=== PATIENT | female | born 1965 | race Caucasian/White ===

== ENCOUNTER 2017-08-03 10:56 | Emergency (ER) | payer SELFPAY ==
[2017-08-03 11:21] VITALS: BP 135/75
--- NOTE | 2017-08-03 11:24 | UC ---
Respiratory Complaint HPI - HPI Summary HPI Summary: 52 year old female with history of smoking presents with cough. c/o productive cough with yellow secretions, sore throat, bilateral ear pain that has been intermittent since Jun. SINUS PRESSURE as well for over 2 weeks. smokes but quit yesterday. no fever. no sob . [ End ] - History of Current Complaint Chief Complaint: UCRespiratory Stated Complaint: THROAT/EAR COMPLAINT Time Seen by Provider: 08/03/17 11:15 Hx Obtained From: Patient Onset/Duration: Gradual Onset Timing: Constant Severity Initially: Moderate Severity Currently: Moderate Pain Intensity: 6 Character: Cough: Productive Associated Signs And Symptoms: Positive: Nasal Congestion, Sinus Discomfort - Allergies/Home Medications Allergies/Adverse Reactions: Allergies Allergy/AdvReac Type Severity Reaction Status Date / Time codeine Allergy Difficulty Verified 08/03/17 11:15 Breathing Sulfa (Sulfonamide Allergy Difficulty Verified 08/03/17 11:15 Antibiotics) Breathing Home Medications: Home Medications N-Con Tonic 3 tab PO DAILY 08/03/17 [History] PMH/Surg Hx/FS Hx/Imm Hx Previously Healthy: Yes - Surgical History Surgical History: Yes Surgery Procedure, Year, and Place: hysterectomy/cholectectomy/tonsils - Family History Known Family History: Positive: None - Social History Occupation: Employed Full-time - chairman of the board Alcohol Use: Occasionally Substance Use Type: None Smoking Status (MU): Light Every Day Tobacco Smoker Type: Cigarettes Amount Used/How Often: 1/4 pack daily- quit yesterday Have You Smoked in the Last Year: Yes Household Exposure Type: Cigarettes Cessation Counseling: Patient Advised to Stop - Immunization History Most Recent Influenza Vaccination: declined Most Recent Tetanus Shot: with in the last 10 years Most Recent Pneumonia Vaccination: never had Review of Systems Constitutional: Fatigue ENT: Nasal Discharge, Sinus Congestion, Sinus Pain/Tenderness Respiratory: Cough Is Patient Immunocompromised?: No All Other Systems Reviewed And Are Negative: Yes Physical Exam Triage Information Reviewed: Yes Appearance: Well-Appearing, No Pain Distress, Well-Nourished Vital Signs: Initial Vital Signs Temp 99.2 F 08/03/17 11:16 Pulse 70 08/03/17 11:16 Resp 18 08/03/17 11:16 BP 135/75 08/03/17 11:16 Pulse Ox 98 08/03/17 11:16 Vital Signs Reviewed: Yes Eye Exam: Normal ENT: Positive: Nasal congestion, TM dull, Sinus tenderness Dental Exam: Normal Neck exam: Normal Neck: Positive: 1 Respiratory Exam: Normal Cardiovascular Exam: Normal Musculoskeletal Exam: Normal Neurological Exam: Normal Psychological Exam: Normal Skin Exam: Normal UC Diagnostic Evaluation - Laboratory O2 Sat by Pulse Oximetry: 98 Respiratory Course/Dx - Course Course Of Treatment: she is aware of SE of antibiotics,. she wuill try to quit smoking. f/u with PCP - Differential Dx/Diagnosis Differential Diagnosis/HQI/PQRI: Bronchitis, Lower Resp Infection Provider Diagnoses: Sinusitis. Bronchitis Discharge - Sign-Out/Discharge Documenting (check all that apply): Discharge - Discharge Plan Condition: Good Disposition: HOME Prescriptions: Amoxicillin/Clavulanate TAB* [Augmentin TAB 875*] 875 mg PO BID 10 Days #20 tab Patient Education Materials: Acute Bronchitis (ED) Referrals: Crystal Borges MD [Primary Care Provider] - 4 Days Additional Instructions: GOOD LUCK QUITTING SMOKING ! BASED ON YOUR COUGH , SORE THROAT, AND SINUS PRESSURE WE WILL TREAT YOU FOR BRONCHITIS / SINUSITIS - Billing Disposition and Condition Condition: GOOD Disposition: HOME
== END 2017-08-03 11:37 | disposition home or self-care (01) ==
LOC: UCCORT 10:56
DX: J32.9 Chronic sinusitis, unspecified (principal); J40 Bronchitis, not specified as acute or chronic; F17.210 Nicotine dependence, cigarettes, uncomplicated; Z88.5 Allergy status to narcotic agent; Z88.2 Allergy status to sulfonamides
CPT/HCPCS: 99212; G0463